=== PATIENT | male | born 1955 | race Two or more races ===

== ENCOUNTER 2022-06-07 07:27 | Outpatient (CLI) | payer OTHER ==
[~2022-06-07 07:27] MED LIST: ECOTRIN81 MG; NITROGLYCERIN0.4 MG; ZESTRIL10 MG
== END 2022-06-07 07:40 | disposition home or self-care (01) ==
LOC: TOM 07:27
PROVIDERS: ATTEND Internal Medicine Gastroenterology
DX: K63.5 Polyp of colon (principal); K56.601 Complete intestinal obstruction, unspecified as to cause; J02.9 Acute pharyngitis, unspecified; J99 Respiratory disorders in diseases classified elsewhere; Z87.891 Personal history of nicotine dependence